=== PATIENT | female | born 1995 | race Caucasian/White ===

== ENCOUNTER 2016-08-07 21:37 | Emergency (ER) | payer OTHER, MEDICAID ==
[~2016-08-07 21:37] MED LIST: ASPIR 8181 M1 PO; CEPHALEXIN500 M2 PO; COMPAZINE5 MG PO; CYMBALTA60 M1 PO; DROSPIRENONE PO; EFFEXOR75 MG; ETHINYL ESTRADIOL PO; FISH OIL 11000 MG/CA PO; FLOMAX0.4 M1 PO; HYDROXYZINE HCL10 M1 PO; IRON325 M3 PO; LEXAPRO20 M2 PO; MELATONIN1 M2; METADATE CD60 MG; NORCO 5-325 TA1 EACH PO; NORCO 5/325 TAB1 TAB PO; TRAZODONE HCL100 M1 PO; TRAZODONE50 MG; TRILEPTAL150 M2 PO; TRILEPTAL300 M2 PO; ZOFRAN4 M2 PO
[2016-08-07] MEDS ORDERED: LAMICTAL100 M2 PO (21:59)
[2016-08-07] MEDS ORDERED: CLEOCIN T60 GM TP (22:00)
[2016-08-07] MEDS ORDERED: ZOFRAN4 M2 PO ×2 (22:01→23:31)
[2016-08-07 22:41] LABS: BASO % 0.6 % (0-2); BASO ABSOLUTE COUNT 0.1 tho/cmm (0.0-0.2); EOS % 2.2 % (0-7); EOSINOPHIL ABSOLUTE COUNT 0.2 tho/cmm (0.0-0.7); HCT-HEMATOCRIT 37.7 % (34.0-49.0); HGB-HEMOGLOBIN 12.9 gm/dl (12.0-15.5); IMMATURE GRANULOCYTES ABSOLUTE 0.03 tho/cmm (0-0.03); IMMATURE GRANULOCYTES PERCENT 0.3 % (0-0.3); LYMPH % 18.5 % (20-45); LYMPH ABSOLUTE COUNT 1.9 tho/cmm (0.8-4.5); MCH (MEAN CORPUSCULAR HGB) 31.1 pg (28.0-32.0); MCHC MEAN CORPUSCULAR HGB CONC 34.2 % (32.0-36.0); MCV (MEAN CELL VOLUME) 90.8 fl (82.0-96.0); MEAN PLATELET VOLUME 10.4 cmc (9.4-12.4); MONO % 6.4 % (0-12); MONOCYTE ABSOLUTE COUNT 0.7 tho/cmm (0.0-1.2); NEUTROPHIL ABSOLUTE COUNT 7.4 tho/cmm (1.6-8.0); NEUTROPHIL-AUTOMATED 7.4 tho/cmm (1.6-8.0); PLATELET COUNT 257 tho/cmm (150-450); RED BLOOD COUNT 4.15 mil/cmm (4.00-5.20); RED CELL DISTRIBUTION WIDTH 12.9 % (12.4-16.4); WHITE BLOOD COUNT 10.2 tho/cmm (4.0-10.0)
[2016-08-07 22:50] LABS: URINE BILIRUBIN NEGATIVE (NEG); URINE BLOOD LARGE (NEG); URINE GLUCOSE (UA) NEGATIVE (NEG); URINE KETONE NEGATIVE (NEG); URINE LEUKOCYTE ESTERASE NEGATIVE (NEG); URINE NITRITE NEGATIVE (NEG); URINE PROTEIN NEGATIVE (NEG)
[2016-08-07 22:53] LABS: ALB/GLOB RATIO 1.1 (0.8-2.0); ALBUMIN 3.9 g/dl (3.5-5.0); ALKALINE PHOSPHATASE 90 U/L (33-138); ALT/SGPT 30 U/L (12-78); BILIRUBIN,TOTAL 0.4 mg/dl (0-1.5); BLOOD UREA NITROGEN 10 mg/dl (6-24); CALCIUM 9.1 mg/dl (8.5-10.5); CARBON DIOXIDE-VENOUS 26 mmol/L (22-32); CHLORIDE 109 mmol/l (96-110); CREATININE 0.83 mg/dl (0.50-1.10); GLUCOSE 98 mg/dL (70-110); SODIUM 144 mmol/L (135-145); eGFR VALUE FOR BLACK >90 mL/Min
[2016-08-07 22:53] LABS: URINE APPEARANCE HAZY; URINE COLOR YELLOW
[2016-08-07 22:55] LABS: ANION GAP 13 mmol/L (0-20); AST/SGOT 27 U/L (10-40); POTASSIUM 4.1 mmol/L (3.7-5.1)
[2016-08-07 22:59] LABS: URINE RBC 50-60 /[HPF] (0-5); URINE WBC 0 /[HPF] (0-5)
[2016-08-07 23:00] LABS: URINE BACTERIA 1+; URINE EPITHELIAL CELLS 0-1 /[HPF] (0-10)
[2016-08-07] MEDS ORDERED: FLOMAX0.4 M1 PO (23:31)
== END 2016-08-08 00:09 ==
LOC: EDMED 21:37
PROVIDERS: Emergency Medicine
DX: N13.2 Hydronephrosis with renal and ureteral calculous obstruction (principal); K59.00 Constipation, unspecified; Z87.442 Personal history of urinary calculi; D64.9 Anemia, unspecified; Z86.711 Personal history of pulmonary embolism; Z79.82 Long term (current) use of aspirin; Z79.899 Other long term (current) drug therapy
CPT/HCPCS: J2405; J7030; P9612